=== PATIENT | female | born 1995 | race Two or more races ===

== ENCOUNTER 2025-03-23 20:55 | Emergency (ER) | payer OTHER ==
[~2025-03-23] VITALS: Ht 154.9 cm; Wt 77.1 kg
[2025-03-23] MEDS ORDERED: LEXAPRO5 MG (21:15)
[2025-03-23] MEDS ORDERED: PROAIR RESPICL90 MCG (21:16)
[2025-03-23] MEDS ORDERED: CLONAZEPAM0.25 MG PO (21:16)
[2025-03-23] MEDS ORDERED: BUDESONIDE 0.5 MG/2 ML AMPUL.NEB IH ONE (22:30)
[2025-03-23] MEDS ORDERED: IPRATROPIUM/ALBUTEROL SULFATE 3 ML AMPUL.NEB IH SCH (22:30)
== END 2025-03-24 00:20 | disposition home or self-care (01) ==
LOC: ER 22:12
DX: J45.909 Unspecified asthma, uncomplicated (principal); R06.02 Shortness of breath